=== PATIENT | male | born 1985 | race Caucasian/White ===

== ENCOUNTER 2020-01-29 12:37 | Emergency (ER) | payer BC ==
[~2020-01-29] VITALS: Ht 175.3 cm; Wt 89.4 kg
[~2020-01-29 12:37] MED LIST: AMOCLA875 PO; CEPH500 PO; CLIN300 PO; CYCL10 PO; HYDACE5 PO; IBUP600 PO; INDERAL XL80 MG PO; Keflex500 MG PO; NAPR500 PO; Norco 5-325 Ta1 EACH PO; OXYACE5T PO; PENVK500 PO; PROM25 PO; RXHYDACE PO; SUMA25 PO
== END 2020-01-29 16:00 | disposition home or self-care (01) ==
LOC: ER 12:37
DX: G56.02 Carpal tunnel syndrome, left upper limb (principal); F17.200 Nicotine dependence, unspecified, uncomplicated; Z79.899 Other long term (current) drug therapy
CPT/HCPCS: 29125; 73110; 96372-59; 99283-25; J1885